=== PATIENT | female | born 1960 | race African-American/Black ===

== ENCOUNTER 2018-07-05 12:33 | Emergency (ER) | payer MEDICAID ==
[~2018-07-05] VITALS: Ht 167.6 cm; Wt 80.7 kg
--- NOTE | 2018-07-05 12:37 | NUR ---
KWAN WIN, CURRENTLY AWAITING BED
[2018-07-05 12:42] VITALS: BP 107/74
--- NOTE | 2018-07-05 12:45 | NUR ---
PT TAKEN TO BED 10 BY [facility]
--- NOTE | 2018-07-05 13:01 | NUR ---
58 yo f [facility] w/ c/o FTT. pt living in her car. 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 states pt is dirty/lethargic. last meal 11pm last night, meal tray ordered for pt. denies n/v/d/fevers. pt aaox4, gcs 15. pt is wearing clean clothes. reports intermittent left arm pain. no other complaints. rr even and unlabored, lungs bl clear. abd soft, non-tender. er md notified of pt status. pt needs met, safety precautions in place. will continue to monitor.
--- NOTE | 2018-07-05 13:33 | NUR ---
[facility] CALLED ABOUT PT MEAL TRAY, STATE IT IS BEING PREPARED AT THIS TIME.
--- NOTE | 2018-07-05 13:52 | NUR ---
PT LYING IN [facility] ATTEMTPING TO SLEEP, PT REQUESTING HER FOOD, NOTIFIED THAT [facility] IS PREPARING HER MEAL AT THIS TIME. VSS. SAFETY PRECAUTIONS IN PLACE. WILL CONTINUE TO MONITOR.
--- NOTE | 2018-07-05 14:25 | NUR ---
pt eating at this time. pt states she does not want any tx done until she is finished eating. pt given a cup to provide urine samples.
--- NOTE | 2018-07-05 14:50 | NUR ---
PT REFUSED LAB DRAW AND ANY MEDICAL TREATMENT. DR. PAVON MADE AWARE.
--- NOTE | 2018-07-05 14:56 | NUR ---
PT AMBULATED 50 FT WITH STEADY GAIT, A/OX4. EDMD AWARE.
--- NOTE | 2018-07-05 14:57 | NUR ---
HOMELESS PACKET GIVEN
[2018-07-05 15:05] VITALS: BP 107/78
--- NOTE | 2018-07-05 15:06 | NUR ---
Patient discharged with v/s stable. Written and verbal after care instructions given and explained. Patient alert, oriented and verbalized understanding of instructions. Ambulatory with steady gait. All questions addressed prior to discharge. ID band removed. Patient advised to follow up with PMD. HOMELESS PACKET given. Patient educated on indication of medication including possible reaction and side effects. Opportunity to ask questions provided and answered.
== END 2018-07-05 15:06 | disposition home or self-care (01) ==
LOC: MED 12:33
DX: R53.1 Weakness (principal); R63.0 Anorexia; E05.90 Thyrotoxicosis, unspecified without thyrotoxic crisis or storm
CPT/HCPCS: 93005; 99283